=== PATIENT | male | born 1970 | race Caucasian/White ===

== ENCOUNTER 2024-10-01 16:07 | Emergency (ER) | payer BC, SELFPAY ==
[2024-10-01 16:15] VITALS: BP 221/103; PULSE 78; RESP 16; TEMP 36.3; O2SAT 96; BMI 34.4
--- NOTE | 2024-10-01 16:26 | CRLHL7_ITS ---
For Patients: As a result of the Century Cures Act, medical imaging exams and procedure reports are released immediately into your electronic medical record. You may view this report before your referring provider. If you have questions, please contact your health care provider. CT ANGIOGRAM HEAD DATE: 10/01/2024 CLINICAL HISTORY: Patient with focal neurological deficits. TECHNIQUE: Standard helical CT image acquisition through the intracranial circulation following intravenous administration of contrast material with bolus tracking. 2D and 3D MIP images for post-processing were performed and interpreted on an independent workstation and 3D images were permanently archived. COMPARISON: CT same day. FINDINGS: There is no proximal intracranial large vessel occlusion. There is mild intracranial atherosclerosis in the posterior cerebral arteries bilaterally, right vertebral artery and right middle cerebral artery. There is no intracranial aneurysm. The right internal carotid artery is normal. The right anterior cerebral artery and its branches are normal. The left internal carotid artery is normal. The left middle cerebral artery and its branches are normal. The left anterior cerebral artery and its branches are normal. The anterior communicating artery is well visualized and appears normal. The left vertebral artery and PICA are normal. The vertebral arteries dominant. The basilar artery is patent and appears normal. The visualized venous structures are patent. IMPRESSION: 1. No proximal intracranial large vessel occlusion. 2. Mild intracranial atherosclerosis in the posterior cerebral arteries bilaterally, right vertebral artery and right middle cerebral artery. Please note that all CT scans at this facility use dose modulation, iterative reconstruction, and/or weight-based dosing when appropriate to reduce radiation dose to as low as reasonably achievable. Dictated by: Gabriel Celestin MD @ 10/01/2024 17:18:53 (Electronically Signed)
--- NOTE | 2024-10-01 16:26 | CRLHL7_ITS ---
For Patients: As a result of the Century Cures Act, medical imaging exams and procedure reports are released immediately into your electronic medical record. You may view this report before your referring provider. If you have questions, please contact your health care provider. CT ANGIOGRAM NECK DATE: 10/01/2024 CLINICAL HISTORY: Patient with focal neurological deficits. TECHNIQUE: Standard helical CT image acquisition of the neck up to the skull base after bolus intravenous contrast enhancement. 2D and 3D MIP images for post-processing were performed and interpreted on an independent workstation and 3D images were permanently archived. COMPARISON: CT same day. FINDINGS: The origins of the great vessels from the aortic arch are patent. The origin of the right vertebral artery is patent. The origin of the left vertebral artery is patent. The common carotid arteries are patent. There is plaque without stenosis at the origin of the right internal carotid artery. There is plaque without stenosis at the origin of the left internal carotid artery. The rest of the cervical segments of the internal carotid arteries are patent up to the skull base. The vertebral arteries are codominant. The cervical segments of the vertebral arteries are patent up to the skull base. The visualized lung apices are unremarkable. The thyroid gland is unremarkable. The soft tissues of the neck are unremarkable. There are degenerative changes in the cervical spine. IMPRESSION: Patent cervical vasculature. Please note that all CT scans at this facility use dose modulation, iterative reconstruction, and/or weight-based dosing when appropriate to reduce radiation dose to as low as reasonably achievable. Dictated by: Gabriel Celestin MD @ 10/01/2024 17:15:25 (Electronically Signed)
--- NOTE | 2024-10-01 16:26 | CRLHL7_ITS ---
For Patients: As a result of the Century Cures Act, medical imaging exams and procedure reports are released immediately into your electronic medical record. You may view this report before your referring provider. If you have questions, please contact your health care provider. CT HEAD DATE: 10/01/2024 CLINICAL HISTORY: Patient with focal neurological deficits. TECHNIQUE: Standard CT scanning of the head was performed. COMPARISON: None. FINDINGS: There is no intracranial hemorrhage. There is no territorial infarction. There are mild microangiopathic changes. There is diffuse parenchymal volume loss. There is no mass effect or midline shift. The calvarium is unremarkable. The orbits are unremarkable. The paranasal sinuses are unremarkable. The mastoid air cells are unremarkable. The soft tissues are unremarkable. IMPRESSION: 1. No intracranial hemorrhage or territorial infarction. 2. Mild microangiopathic changes and diffuse parenchymal volume loss. Please note that all CT scans at this facility use dose modulation, iterative reconstruction, and/or weight-based dosing when appropriate to reduce radiation dose to as low as reasonably achievable. Dictated by: Gabriel Celestin MD @ 10/01/2024 17:12:34 (Electronically Signed)
--- NOTE | 2024-10-01 16:34 | ED_ITS ---
HPI - General Adult General Chief complaint: Neuro Symptoms/Altered Deficit Stated complaint: R hand tingly, can't look left Time Seen by Provider: 10/01/24 16:17 History of Present Illness HPI narrative: Patient is a 54-year-old gentleman who does not see a physician regularly. He approximately an hour ago the abrupt onset of approximately 30 minutes of tingling in his left hand with no lack of the movement. He has had difficulty moving his eyes to the left. He has a blurring of his left side of his vision brain of the possibility of hemianopsia. He has had no fevers no chills no night sweats no headache no nausea no vomiting. Patient took 2 Tylenol and approximately 15 minutes prior to arrival is symptoms have completely resolved. He has had no similar symptoms previously. Patient states he feels fine now. He takes no medication. Blood pressure upon presentation is 221/103. Patient again states he feels fine now NIH stroke scale 0. Related Data Previous Rx's ?Medication ?Instructions ?Recorded valsartan 80 1 tab PO DAILY #30 tabs 09/07 09/30 mg-hydrochlorothiazide 12.5 mg tablet (Diovan HCT) Allergies Allergy/AdvReac Type Severity Reaction Status Date / Time No Known Drug Allergies Allergy Verified 10/01/24 17:02 Review of Systems Status of ROS: Reports: 10 or more systems reviewed and unremarkable except as noted in History and below [facility] Medical History (Updated 10/01/24 @ 17:41 by Jorje Skelton MD) Hypertension ?I10 - Essential (primary) hypertension (ICD-10) Exam Narrative: Exam Narrative: EXAM GENERAL: Patient appears comfortable and well. EYES: No scleral icterus. ENT: Tympanic membranes and oropharynx normal. THYROID: no thyroid nodules or thyromegaly. LYMPH: No supraclavicular or cervical lymphadenopathy. SKIN: Visible skin seen during exam normal or with benign process only. EXT: No dependent lower extremity pedal edema. HEART: Regular rate and rhythm with no murmurs, rubs, or gallops. LUNGS: Clear to auscultation bilaterally with no crackles or wheezes. ABD: Soft, non tender, non distended. PSYCH: Good eye contact, speech is not pressured. Neurologic cranial nerves 2-12 grossly intact no focal defects. Const: Vital Signs, click to edit/add: Vital Signs - 24 hr 10/01/24 16:15 10/01/24 17:55 Temperature 97.3 F L 97.3 F L Pulse Rate [Pulse Oximeter] 78 78 Respiratory Rate 16 16 Blood Pressure [Ri ght Upper Arm] 221/103 H 174/99 H Pulse Oximetry 96 Oxygen Delivery Me thod Room Air Course Course ED Course: Patient presents with no focal defects an NIH stroke scale is 0. He is not a stroke code in a.m. proceeding with CTA head neck as well CT of the head CBC comprehensive metabolic panel EKG. Vital Signs Vital signs: Initial Vital Signs Temperature 97.3 F L 10/01/24 16:15 Temperature Source Temporal Artery Scan 10/01/24 16:15 Pulse Rate 78 10/01/24 16:15 Respiratory Rate 16 10/01/24 16:15 Blood Pressure 221/103 H 10/01/24 16:15 Blood Pressure Mean 142 H 10/01/24 16:15 Blood Pressure Position Sitting 10/01/24 16:15 Pulse Oximetry 96 10/01/24 16:15 Oxygen Delivery Method Room Air 10/01/24 16:15 Vital Signs Temperature 97.3 F L 10/01/24 16:15 Pulse Rate 78 10/01/24 16:15 Respiratory Rate 16 10/01/24 16:15 Blood Pressure 221/103 H 10/01/24 16:15 Pulse Oximetry 96 10/01/24 16:15 Oxygen Delivery Method Room Air 10/01/24 16:15 Temperature 97.3 F L 10/01/24 17:55 Pulse Rate 78 10/01/24 17:55 Respiratory Rate 16 10/01/24 17:55 Blood Pressure 174/99 H 10/01/24 17:55 Pulse Oximetry 96 10/01/24 16:15 Oxygen Delivery Method Room Air 10/01/24 16:15 Medical Decision Making MDM Narrative Medical decision making narrative: Patient presents with right-sided tingling and difficulty seeing out of his left eye. Symptoms had resolved by the time he arrived. CTA of the head and neck and CT unenhanced head were grossly within normal limits. Labs look reasonable EKG shows normal sinus rhythm. This time patient will be started on Diovan hydrochlorothiazide 80/25 daily and will follow-up with me in the office as a new patient. He will return if symptoms worsen. Would also start him on aspirin 81 mg daily. Lab Data Labs: Lab Results 10/01/24 Range/Units 16:47 WBC 6.11 (4.50-11.00) K/uL RBC 5.04 (4.30-5.90) m/uL Hgb 14.6 (13.5-17.5) gm/dL Hct 42.4 (37.0-53.0) % MCV 84 (80-100) fL MCH 29 (26-34) pg MCHC 34 (32-36) gm/dL RDW Coeff of Cash 12.5 (11.5-15.5) % Plt Count 252 (140-440) K/uL Neut % (Auto) 53.0 (42.0-72.0) % Lymph % (Auto) 33.6 (20-44) % [place] % (Auto) 8.8 (0.0-11.0) % Eos % (Auto) 4.1 (0.0-7.0) % Baso % (Auto) 0.3 (0.0-3.0) % Neut # (Auto) 3.24 (1.7-7.0) K/uL Lymph # (Auto) 2.05 (0.90-2.90) K/uL [place] # (Auto) 0.50 (0.00-0.90) K/UL Eos # (Auto) 0.25 (0.00-0.50) K/uL Baso # (Auto) 0.02 (0.00-0.30) K/uL Abs Immat Gran (auto) 0.01 (0.00-0.30) K/uL Imm/Tot Granulo (auto) 0.2 % Sodium 136 (135-149) mmol/L Potassium 3.2 L (3.6-5.1) mmol/L Chloride 99 (96-114) mmol/L Carbon Dioxide 27 (20-32) mmol/L Anion Gap 10 (7-15) mEq/L BUN 7 (7-30) mg/dL Creatinine 0.7 (0.5-1.5) mg/dL Estimated Creat Clear 128.49 Estimated GFR 110 ml/min Glucose 184 H (60-115) mg/dL Calcium 9.5 (8.4-10.6) mg/dL Total Bilirubin 0.7 (0.1-1.5) mg/dL AST 33 (12-35) U/L ALT 37 (4-50) U/L Alkaline Phosphatase 97 (40-150) U/L Total Protein 8.4 H (6.0-8.3) g/dL Albumin 4.8 (3.3-5.0) g/dL Discharge Plan Discharge Clinical Impression: Transient cerebral ischemia Patient Disposition: Home, Self-Care Condition: Stable Instructions: Transient Ischemic Attack (ED) Additional Instructions: Diovan hydrochlorothiazide at your pharmacy Take Aspirin 81 mg daily Return if symptoms return Follow-up with Dr. Skelton in 2 weeks fasting. Activity Level: No Restrictions Discharge Diet: Regular Prescriptions: New valsartan-hydrochlorothiazide [Diovan HCT] 80-12.5 mg tablet 1 tab PO DAILY Qty: 30 2RF Follow Up/Referrals: Provider,Not a Local [Primary Care Provider, Family Practice] Stand Alone Forms: MyHealth Info Instructions
[2024-10-01 16:50] LABS: Basophils Absolute Auto 0.02 K/uL (0.00-0.30); Basophils Percent Auto 0.3 % (0.0-3.0); Eosinophils Absolute Auto 0.25 K/uL (0.00-0.50); Eosinophils Percent Auto 4.1 % (0.0-7.0); Hematocrit 42.4 % (37.0-53.0); Hemoglobin* 14.6 gm/dL (13.5-17.5); Immature Granulocytes Abs Auto 0.01 K/uL (0.00-0.30); Immature Granulocytes Pct Auto 0.2 %; Lymphocytes Absolute Auto 2.05 K/uL (0.90-2.90); Lymphocytes Percent Auto 33.6 % (20-44); Mean Corpuscular HGB Conc 34 gm/dL (32-36); Mean Corpuscular Hemoglobin 29 pg (26-34); Mean Corpuscular Volume 84 fL (80-100); Monocytes Percent Auto 8.8 % (0.0-11.0); Neutrophils Absolute Auto 3.24 K/uL (1.7-7.0); Platelet Count* 252 K/uL (140-440); RDW Coefficient of Variation % 12.5 % (11.5-15.5); Red Blood Count 5.04 m/uL (4.30-5.90); White Blood Count* 6.11 K/uL (4.50-11.00)
[2024-10-01 17:02] LABS: Slide Review Reflex No
[2024-10-01 17:03] LABS: Chloride* 99 mmol/L (96-114)
[2024-10-01 17:04] LABS: Albumin* 4.8 g/dL (3.3-5.0); Potassium* 3.2 mmol/L (3.6-5.1); Sodium* 136 mmol/L (135-149)
[2024-10-01 17:06] LABS: Blood Urea Nitrogen* 7 mg/dL (7-30); Creatinine* 0.7 mg/dL (0.5-1.5); Est. Creatinine Clearance* 128.49; Estimated Glomerular Filt Rate 110 ml/min
[2024-10-01 17:07] LABS: Alanine Aminotransferase* 37 U/L (4-50); Alkaline Phosphatase* 97 U/L (40-150); Anion Gap 10 mEq/L (7-15); Aspartate Amino Transferase* 33 U/L (12-35); Bilirubin Total* 0.7 mg/dL (0.1-1.5); Calcium* 9.5 mg/dL (8.4-10.6); Carbon Dioxide* 27 mmol/L (20-32); Glucose* 184 mg/dL (60-115); Total Protein* 8.4 g/dL (6.0-8.3)
[2024-10-01 17:55] VITALS: BP 174/99; PULSE 78; RESP 16; TEMP 36.3
== END 2024-10-01 17:55 | disposition home or self-care (01) ==
PROVIDERS: Emergency Provider Internal Medicine
DX: G45.9 Transient cerebral ischemic attack, unspecified (principal); H53.8 Other visual disturbances; R03.0 Elevated blood-pressure reading, without diagnosis of hypertension
CPT/HCPCS: 36415; 70450; 70496; 70498; 80053; 85025; 93005; 99284; 99285; Q9967

== ENCOUNTER 2024-10-16 13:37 | Outpatient (CLI) | payer BC, SELFPAY | END 2024-10-16 13:38 | disposition home or self-care (01) | PROVIDERS: Visit Provider Family Medicine | DX: E78.5 Hyperlipidemia, unspecified (principal); I10 Essential (primary) hypertension | CPT/HCPCS: 80053; 80061; 84443 ==

== ENCOUNTER 2025-01-29 14:31 | Outpatient (CLI) | payer BC, SELFPAY | END 2025-01-29 14:32 | disposition home or self-care (01) | LOC: NFLDREF 14:33 | PROVIDERS: PCP Family Medicine; Visit Provider Family Medicine | DX: I10 Essential (primary) hypertension (principal); E78.5 Hyperlipidemia, unspecified; R73.03 Prediabetes | CPT/HCPCS: 80048 ==

== ENCOUNTER 2025-02-26 14:45 | Outpatient (CLI) | payer BC, SELFPAY | END 2025-02-26 14:46 | disposition home or self-care (01) | LOC: NFLDREF 03-04 17:03 | PROVIDERS: PCP Family Medicine; Referring Provider Family Medicine; Visit Provider Family Medicine | DX: I10 Essential (primary) hypertension (principal); E78.5 Hyperlipidemia, unspecified | CPT/HCPCS: 80053; 80061 ==